=== PATIENT | male | born 1985 | race Caucasian/White ===

== ENCOUNTER 2018-12-24 16:07 | Emergency (ER) | payer OTHER ==
[~2018-12-24] VITALS: Ht 185.4 cm; Wt 85.1 kg
--- NOTE | 2018-12-24 16:18 | NUR ---
PT BROUGHT IN BY [facility] FOR ABNORMAL BEHAVIOR PT PARANOID DELUSIONAL AND FEELS PEOPLE ARE OUT TO GET HIM
[2018-12-24] MEDS ORDERED: OLANZAPINE 10 MG VIAL IM ONE ×2 (16:30)
[2018-12-24 16:34] LABS: BASOPHILS % (AUTO) 0.5 % (0.0-2.0); EOSINOPHILS % (AUTO) 1.4 % (0.0-6.0); HEMATOCRIT 42 % (39-51); HEMOGLOBIN 14.2 g/dL (13.5-17.5); LYMPHOCYTES # (AUTO) 1.8 /CMM (0.8-4.8); LYMPHOCYTES % (AUTO) 24.2 % (20.0-44.0); MEAN CORPUSCULAR HGB CONC 34 g/dl (31.0-36.0); MEAN CORPUSCULAR VOLUME 93 fL (80-96); MONOCYTES # (AUTO) 0.6 /CMM (0.1-1.30); MONOCYTES % (AUTO) 8.5 % (2.0-12.0); NEUTROPHILS # (AUTO) 4.8 /CMM (1.8-8.9); NEUTROPHILS % (AUTO) 65.4 % (43.0-81.0); PLATELET COUNT (AUTO) 252 /CMM (150-450); RED BLOOD CELL COUNT(AUTO) 4.51 MIL/uL (4.5-6.0); WHITE BLOOD COUNT (AUTO) 7.3 K/uL (4.3-11.0)
[2018-12-24 16:36] LABS: APPEARANCE,URINE Clear (CLEAR); BILIRUBIN,URINE Negative (NEGATIVE); BLOOD, URINE Negative Ery/uL (NEGATIVE); COLOR,URINE Yellow (YELLOW); KETONES,URINE Negative (NEGATIVE); LEUKOCYTE ESTERASE ,URINE Negative (NEGATIVE); NITRITE, URINE Negative (NEGATIVE); PH,URINE 6.5 (5.0-8.0); PROTEIN,URINE Negative (NEGATIVE); UGLUCOSE Negative (NEGATIVE); UROBILINOGEN,URINE 0.2 EU/dL (0.2)
--- NOTE | 2018-12-24 16:38 | NUR ---
PT RUBBING HEAD STATING "NOT FEELING WELL" BLOOD AND URINE SENT TO LAB MEDICATION GIVEN ORDERED
[2018-12-24 16:49] LABS: ALANINE AMINOTRANSFERASE 32 U/L (12-78); ALBUMIN 3.7 g/dL (3.4-5.0); ALCOHOL, BLOOD < 3 mg/dL (0-0); ALKALINE PHOSPHATASE 93 U/L (46-116); ASPARTATE AMINOTRANSFERASE 28 U/L (15-37); BILIRUBIN,DIRECT 0.1 mg/dL (0.0-0.2); BILIRUBIN,TOTAL 0.4 mg/dL (0.2-1.0); CARBON DIOXIDE 31 mmol/L (21-32); CHLORIDE 104 mmol/L (98-107); GLUCOSE 83 mg/dL (74-106); POTASSIUM 4.4 mmol/L (3.5-5.1); SODIUM SERUM 140 mmol/L (136-145); TOTAL PROTEIN, SERUM 7.2 g/dL (6.4-8.2); UREA NITROGEN, BLOOD 14 mg/dL (7-18)
[2018-12-24 16:50] LABS: ACETAMINOPHEN < 2 ug/ml (10-30); SALICYLATE 1.9 mg/dL (2.8-20.0)
--- NOTE | 2018-12-24 17:25 | NUR ---
PT CALM AFTER MEDICATION WILL CONTINUE TO MONITOR
--- NOTE | 2018-12-24 17:30 | NUR ---
PT MEDICALLY CLEARED PET TEAM CALLED
--- NOTE | 2018-12-24 17:32 | NUR ---
CALLED [facility] FOR PSYCH EVAL
--- NOTE | 2018-12-24 17:55 | NUR ---
PT GIVEN MEAL TRAY VITAL SIGNS TAKEN
--- NOTE | 2018-12-24 21:11 | NUR ---
PT WAS SEEN BY MAYDA LIM/CIRCUS RIDER. PT IS NOT EXPRESSING SI AT THIS TIME. PT TOLD THE CIRCUS RIDER THAT HE HAS A HOME TO GO TO BUT DOES NOT WANT TO GO THERE RIGHT NOW. CLIF [facility] WILL GIVE THE PT RESOURCES.
--- NOTE | 2018-12-24 23:50 | NUR ---
UPON DISCHARGE PT BECAME UPSET. DESTRUCTIVE TO HOSPITAL PROPERTY. PT THREW COMPUTER ON WHEELS ACROSS NURSES STATION. SECURITY NOTIFIED. PT ESCORTED OUT.
[2018-12-25 04:52] VITALS: BP 138/85
== END 2018-12-24 23:50 | disposition home or self-care (01) ==
LOC: ER 16:10
DX: F19.959 Other psychoactive substance use, unspecified with psychoactive substance-induced psychotic disorder, unspecified (principal); F15.10 Other stimulant abuse, uncomplicated
CPT/HCPCS: 36415; 80048; 80076; 80305; 80307; 80329; 81001; 85025; 96372; 99284; A4606; G0480; J3490; 81000-TC